=== PATIENT | female | born 2000 | race Caucasian/White ===

== ENCOUNTER 2020-07-03 16:41 | Emergency (ER) | payer OTHER, SELFPAY ==
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
[2020-07-03 18:03] VITALS: BP 125/73; PULSE 118; RESP 21; TEMP 36.7; O2SAT 94
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
[2020-07-03 20:05] VITALS: BP 105/78; PULSE 89; RESP 17; O2SAT 98
--- NOTE | 2020-07-03 20:05 | PC.NURSE ---
RN in to assess pt. Pt. states Do you guys do pelvic exams and STD checks? I would like one. ERP notified.
--- NOTE | 2020-07-03 20:15 | PC.NURSE ---
RN in to discharge pt. Pt. family member/ support person steps out of the room. pt. states Oh thank god. What about that STD check? RN asked pt. if she spoke with the N.P. who was taking care of her. Pt. states Who was that? ERP notified of pt. request. ERP ordered a Urinalysis on Pt. pt. refusing urine sample stating she cannot pee. 2020 Pt. refusing a UA. ERP notified and pt. is discharged with a referral to follow up with Dr. Ellington.
[2020-07-03] MEDS: TETANUS,DIPHTHERIA,AC PERTUSSIS ADULT (0.5 ML) BOOSTRIX IM (20:20)
[2020-07-03] MEDS: KETOROLAC (*BKC) 60 MG/2 ML VIAL IM (20:21)
== END 2020-07-03 20:35 | disposition home or self-care (01) ==
PROVIDERS: Emergency Provider Nurse Practitioner; PCP Pediatrics Adolescent Medicine
DX: S00.81XA Abrasion of other part of head, initial encounter (principal); T14.8XXA Other injury of unspecified body region, initial encounter; Z23 Encounter for immunization; V47.5XXA Car driver injured in collision with fixed or stationary object in traffic accident, initial encounter
CPT/HCPCS: 70486; 72125; 90471; 90715; 96372; 99283; J1885